=== PATIENT | female | born 1975 | race Caucasian/White ===

== ENCOUNTER 2022-01-27 10:52 | Outpatient (CLI) | payer OTHER ==
[2022-01-27 12:00] VITALS: BP 118/84
--- NOTE | 2022-01-27 12:00 | SLEEP CARE CONSULTATION ---
Information from patient questionnaire entered by Wilma Buchanan MA. I have reviewed and concur with the information entered by Wilma Buchanan MA. This document represents the service I personally performed and the decisions made by me, Adry Rome ARNP. History of Present Illness Service Date and Time: 01/27/2022 1052 Reason for Visit: New patient Chief Complaint: reports: Unrefreshed sleep, Frequent awakenings at night Date of Onset: ABOUT A YEAR Usual bedtime: 10PM Time it takes to fall asleep: A LONG TIME Snores at night: Yes (SOMTIMES) Observed to quit breathing while asleep: No Sleeps alone due to snoring: No Number of times waking at night: 4-5 TIMES Reasons for waking at night: reports: Bathroom, Other (NOISE) Toss, Turn, or Twitch while sleeping: Yes Recalls having dreams: Yes Usually gets out of bed at: 530PM Feels refreshed in the morning: No Morning headache: Yes (4 times a week; last until afternoon or EVENING) Sleepy or fatigued during the day: Yes Ever fallen asleep while driving: No Takes day naps: No Prior sleep studies: No Additional HPI information: I had the pleasure of seeing ROCIO LEONARD today regarding the possibility of her having a sleep disorder. Her current complaints are unrefreshed sleep and frequent night awakenings. She feels she has a hard times sleeping. She does not sleep at all at night. She is on amitriptyline to help with sleep but is not using it because of other physical issues and medications she is taking. She is taking pain medication and muscle relaxers. She states it can take hours to fall asleep. She will wake up several times a night for bathroom or noise. She will then toss and turn in bed. She gets up about 0530. She states she has always been a light sleeper but slept better until about a year ago. Her snores loudly and she is unable to sleep. She has slept separate from him due to his snoring. She has snored but it does not seem to be consistent. She has woke up herself snoring and feeling like she cannot breathe. She wakes up with a headache often, sometimes feels every day. - Parasomnia Symptoms Ever been unable to move upon waking from sleep: No Walks in sleep: No Talks in sleep: No Ever acted out dreams in sleep: No Ever felt weak in the knees when startled or emotional: No Bothered by creepy, crawly, restless sensations in legs: Yes (sometimes) Problems with memory or concentration: Yes (sometimes; just occasional for getfulness) Subjective Initial [place] Sleepiness Scale score: 5 (01/2022) Past Medical History Past Medical History: reports: Other (concussion - June 2021; Nerve/muscle issues on left side of body- being looked into ; 2019 hysterectomy) Social History The patient's occupation is a [employer]. Patient is and lives in [place]. Have you smoked in the past 12 months: No (21 YEARS AGO) Cigarettes per day (20/pack): 20 Years of smokin Quit date: 1999 Smoking Pack Years: 2.0 Alcohol use: No Caffeine use: Yes Caffeine amount and frequency: 16 OZ 1 A DAY Family History Family history of sleep disordered breathing: Yes Family Hx Sleep Apnea: Mother: Snoring Allergies and Home Medications Known drug allergies: No Drug allergies reviewed: Yes (NKDA) Home medication list reviewed: Yes Allergy and home medication list: Allergies No Known Drug Allergies Allergy (Verified 09/04/13 16:23) Medications: Gabapentin 300 mg 3x a day Tramadol 50 mg, prn Meloxicam 15 mg daily Baclofen 10 mg, 3 x day, as needed Amitriptyline, prn (not taking right now) Review of Systems Weight gain over past 5 years: 25 LBS Weight loss over past 5 years: 6 in last 6 weeks Respiratory: reports: shortness of breath Gastrointestinal: reports: heartburn, abdominal pain Urinary: reports: frequency, urgency Neurological: reports: headaches, head trauma (concussion June 2021) Musculoskeletal: reports: neck pain, back pain, mobility problems Physical Exam Vital signs obtained and entered by: [facility] Blood Pressure: 118/84 (left arm) Cuff size: regular Heart Rate: 76 O2 Saturation: 97 Height: 5 ft 10 in Weight: 147 lb 6.4 oz Body Mass Index: 21.1 BMI Classification: Normal Neck circumference: 15 Mouth and throat: normal Soft palate: normal Hard palate: normal Uvula: normal Uvula visualization: 50% Mallampati Class II Tongue: enlarged in size with teeth townsend on lateral edges Tonsils: small Neck: normal w/o lymphadenopathy or thyromegaly Heart: regular rate and rhythm Lungs: clear bilaterally Impression and Plan 1. Suspected Obstructive Sleep Apnea-Hypopnea Syndrome, as suggested by a history of irregular snoring, morning headache, frequent awakening during the night, unrefreshed sleep, cognitive impairment, and excessive daytime sleepiness. Narrow oropharynx and obesity are common predisposing factors for obstructive sleep apnea-hypopnea syndrome. I recommend proceeding to polysomnography to confirm the diagnosis and to assess severity. If the patient has significant sleep disordered breathing, a manual CPAP titration study will also be performed to find the optimal treatment pressure. I informed the patient of what the sleep studies involve and after some discussion, obtained agreement to proceed. The pathophysiology of obstructive sleep apnea-hypopnea syndrome was discussed with the patient and health risks of cardiovascular and cerebrovascular disease if not treated. Risks of drowsy driving discussed in detail and patient advised to avoid long distance driving and to loin puller at the first sign of drowsiness. Patient agreed to plan. * Schedule polysomnography * Avoid long distance driving or driving when feeling sleepy. * Avoid alcohol, sedative and muscle relaxant around bedtime. * Review instructions provided by trained office staff on how to prepare for the sleep study. * Return for follow-up after sleep study completed. Counseling Topics: Weight loss health impact Visit Type: In Office Time Spent with Patient (minutes): 32 Provider Statement: I spent 100% of the Face to Face Visit with the patient with greater than 50% spent counseling the patient and coordination of care.
== END 2022-01-27 10:53 | disposition home or self-care (01) ==
LOC: SC 10:52
PROVIDERS: ATTEND Nurse Practitioner Family
DX: R06.83 Snoring (principal); G47.8 Other sleep disorders; R51.9 Headache, unspecified; G47.10 Hypersomnia, unspecified; R53.83 Other fatigue; Z87.891 Personal history of nicotine dependence
CPT/HCPCS: 99203; 99212

== ENCOUNTER 2022-02-17 15:25 | Outpatient (CLI) | payer OTHER ==
--- NOTE | 2022-02-17 19:36 | MRI Report ---
PROCEDURE: BRAIN WO INDICATIONS: NEUROLOGIC SYMPTOMS TECHNIQUE: Noncontrast axial T1 spin echo, axial T2 fast spin echo, sagittal and axial FLAIR, coronal T2 fast sp in echo, axial gradient echo, axial diffusion and ADC through the brain. COMPARISON: None. FINDINGS: Image quality: Excellent. CSF Spaces: Basal cisterns are patent. No extra-axial fluid collections. Ventricles are normal in size and shape. Brain: No intracranial masses or hemorrhage. Tomas/white matter interface is normal. Brainstem appe ars normal. Diffusion-weighted images demonstrate no acute ischemic insult. No chronic ischemic ins ults. Normal intravascular flow voids are present. Skull and face: Calvarium has normal marrow signal. Orbits appear normal. Sinuses: Sinuses and mastoids are clear. IMPRESSION: Unremarkable brain MRI. No findings of acute or subacute infarction are seen. Reviewed by: Adan Pemberton MD on 02/17/2022 6:35 PM BRENDA Approved by: Adan Pemberton MD on 02/17/2022 6:35 PM BRENDA Station ID: [id number]
== END 2022-02-17 15:26 | disposition home or self-care (01) ==
LOC: DI 15:25
PROVIDERS: ATTEND Family Medicine
DX: R29.818 Other symptoms and signs involving the nervous system (principal)

== ENCOUNTER 2022-03-05 07:30 | Outpatient (CLI) | payer OTHER ==
[~2022-03-05 07:30] MED LIST: GADOBUTROL 7.5 MMOL/7.5 ML VIAL ONE
[2022-03-05] MEDS ORDERED: GADOBUTROL 7.5 MMOL/7.5 ML VIAL IVP ONE (08:43)
--- NOTE | 2022-03-07 13:37 | MRI Report ---
PROCEDURE: BRAIN W/WO INDICATIONS: PARESTHESIA OF SKIN CONTRAST: 6.0 TECHNIQUE: Noncontrast axial T1 spin echo, axial T2 fast spin echo, sagittal and axial FLAIR, coronal T2 fast sp in echo, axial gradient echo, axial diffusion and ADC through the brain. After the administration of contrast, axial and coronal T1 spin echo with fat saturation through the brain. COMPARISON: None. FINDINGS: Image quality: Excellent. CSF spaces: Basal cisterns are patent. No extra-axial fluid collections. Ventricles are normal in size and shape. Brain: No midline shift. No intracranial bleeds or masses. No abnormal intracranial enhancement. There is cerebral volume loss for age. There is periventricular white matter chronic small vessel is chemic change. The brainstem appears normal. Diffusion-weighted images demonstrate no acute ischemi c insults. No chronic ischemic insults. Normal intravascular flow voids are present. Skull and face: Calvarial marrow is normal in signal. Orbits appear normal. Sinuses: Sinuses and mastoids appear clear. IMPRESSION: 1. No acute intracranial process. Reviewed by: Marcelina Stahl MD on 03/07/2022 1:36 PM PST Approved by: Marcelina Stahl MD on 03/07/2022 1:36 PM PST Station ID: [id number]
== END 2022-03-05 07:31 | disposition home or self-care (01) ==
LOC: DI 07:30
PROVIDERS: ATTEND Family Medicine
DX: R20.2 Paresthesia of skin (principal); M79.602 Pain in left arm
CPT/HCPCS: 70553; A9585

== ENCOUNTER 2022-03-21 09:03 | Outpatient (CLI) | payer OTHER | END 2022-03-21 09:04 | disposition home or self-care (01) | LOC: SC 09:03 | PROVIDERS: ATTEND Nurse Practitioner Family | DX: R09.02 Hypoxemia (principal) | CPT/HCPCS: 95806 ==

== ENCOUNTER 2022-04-29 09:00 | Outpatient (CLI) | payer OTHER ==
[2022-04-29 09:36] VITALS: BP 118/76
--- NOTE | 2022-04-29 09:36 | SLEEP CARE CONSULTATION ---
Information from patient questionnaire entered by Rhoda Gonzalez. I have reviewed and concur with the information entered by Rhoda Gonzalez. This document represents the service I personally performed and the decisions made by , Adry Rome ARNP. History of Present Illness Service Date and Time: 04/29/2022 0900 Initial [place] Sleepiness Scale score: 5 (01/2022) Current [place] Sleepiness Scale score: 6 () Additional HPI information: ROCIO LEONARD returns for follow up and results of the recently performed home sleep study. The patient was informed of the following findings: No significant sleep disordered breathing with an average AHI of 2.8 and robert oxygen saturation of 88%. Patient did not sleep supine. I explained the pathophysiology behind obstructive sleep apnea. Patient does not have sleep apnea and was advised how weight gain could increase the risk of developing sleep apnea in the future. Patient has light snoring. Snoring can be reduced by weight loss. Weight loss is best achieved with diet consult. Patient instructed to contact PCP for referral. Snoring can also be treated with an oral appliance from a dentist. Advised to check insurance coverage. In addition, an ENT evaluation can be do to see if other treatment is indicated. Patient counseled not drink alcohol less than 4 hours before bedtime as it can increase snoring and apnea. Patient was cautioned about risks of drowsy driving until sleepiness symptoms resolve. Patient denies drowsy driving. Sleep Study - Results Type of Sleep Study: Home sleep study (COMPLETED 03/21/22) Prior sleep studies: No Allergies and Home Medications Drug allergies reviewed: Yes (NKDA) Home medication list reviewed: Yes (Magnesium citrate 400 mg; Riboflavin ordered/not started yet) Review of Systems Review of systems same as previous: Yes (no changes) Physical Exam Vital signs obtained and entered by: RHODA Marquez MA Blood Pressure: 118/76 (LEFT ARM) Cuff size: regular Heart Rate: 71 O2 Saturation: 92 Height: 5 ft 10 in Weight: 155 lb 12.8 oz Body Mass Index: 22.3 BMI Classification: Normal Impression and Plan 1. Insomnia, unspecified. Her HST showed no sleep disordered breathing and minimal snoring. Patient states she struggles to fall asleep at night and will wake up repeatedly throughout the night. She will wake up early in the morning and not be able to go back to sleep. She is also a very light sleeper and her snores loudly. Insomnia is generally caused by an irregular sleep schedule, spending too much time in bed, napping, caffeine, electronics, lack of a relaxing bedtime ritual and clock watching. Other factors can include anxiety/depression, pain, medications, and obstructive sleep apnea. First I counseled the patient on the importance of a regular sleep schedule, starting with the wake time. I explained the homestatic sleep drive and how maintaining a regular wake time will allow the patient to be tired enough to sleep 15-16 hours later. By waking at the same time, the patient will also feel more alert. This can also be assisted by exposure to bright light for a minimum of 15 minutes a day upon waking. Additionally too much time spent in bed can cause more sleep disruption as most people only need 7-9 hours of sleep. Thus patient advised to restrict time in bed to 7-8 hours. Naps are to be avoided unless overcome by sleepiness. Then naps are to be restricted to one hour and before 3 pm so as not to interfere with nighttime sleep. Electronics should be avoided 1-2 hours before bedtime as the bright light can reduce the endogenous melatonin and the activity of the computer, tablet, cell phone etc can be alerting. TV is okay but content needs to be relaxing and the brightness dimmed. It is important to have a sleep environment conducive to sleep such as a comfortable bed, comfortable temperature and quiet. If unable to go to sleep in an estimated 20 minutes of more, it is advised to leave the bedroom and engage in a quiet activity until sleepy enough to return to bed. This is to be repeated as often as necessary to associate the bed with sleep and not frustration to get to sleep. [facility] How to Sleep Better pamphlet given and reviewed. A sleep diary will be completed for the next 2 weeks to assist implementation of recommendations and for further evaluation of sleep concerns. * Fill out 2 week sleep diary for follow up * Avoid alcohol consumption near bedtime * The patient is cautioned about driving until sleepiness is completely resolved. * Return in 2 weeks for follow up of insomnia with Dr. Ko. Visit Type: In Office Time Spent with Patient (minutes): 22 Provider Statement: I spent 100% of the Face to Face Visit with the patient with greater than 50% spent counseling the patient and coordination of care.
== END 2022-04-29 09:01 | disposition home or self-care (01) ==
LOC: SC 09:00
PROVIDERS: ATTEND Nurse Practitioner Family
DX: G47.00 Insomnia, unspecified (principal)
CPT/HCPCS: 99212; 99213

== ENCOUNTER 2023-08-11 09:50 | Day surgery (SDC) | payer OTHER ==
[2023-08-11] MEDS: LACTATED RINGERS 1,000 ML IV ONE (09:55)
[2023-08-11] MEDS ORDERED: PROPOFOL 500 MG/50 ML 500 MG/50 ML VIAL ONE (10:41)
--- NOTE | 2023-08-11 10:49 | ANESTHESIA ---
Pre-Anesthesia VS, & Labs - Diagnosis SCREENING/FAMILY HX OF COLON CA - Procedure COLONOSCOPY Vital Signs: Temp Pulse Resp BP Pulse Ox O2 Flow Rate 36.4 C L 84 14 120/89 H 98 08/11/23 10:11 08/11/23 10:11 08/11/23 10:11 08/11/23 10:11 08/11/23 10:11 Height: 5 ft 2 in Weight (kg): 71.2 kg Body Mass Index: 28.7 BMI Classification: Overweight - NPO Last Fluid Intake: 0700 Last Food Intake: >8HR - Is Patient ?: No (HYSTERECTOMY) Home Medications and Allergies Home Medications: Ambulatory Orders Amitriptyline [Elavil] 25 mg PO DAILY 08/10/23 Gabapentin [Neurontin] 600 mg PO TID 08/10/23 Meloxicam [Mobic] 15 mg PO DAILY 08/10/23 Pantoprazole [Protonix] 40 mg PO DAILY 08/10/23 traMADol [Ultram] 50 mg PO Q4-6H PRN 08/10/23 Loratadine 10 mg PO DAILY 09/04/13 Amitriptyline [Elavil] 25 mg PO DAILY 08/10/23 Gabapentin [Neurontin] 600 mg PO TID 08/10/23 Meloxicam [Mobic] 15 mg PO DAILY 08/10/23 Pantoprazole [Protonix] 40 mg PO DAILY 08/10/23 traMADol [Ultram] 50 mg PO Q4-6H PRN 08/10/23 Allergies/Adverse Reactions: Allergies Allergy/AdvReac Type Severity Reaction Status Date / Time duloxetine Allergy Unknown Verified 08/11/23 10:23 latex AdvReac Itching Verified 08/11/23 10:20 Anes History & Medical History - Anesthetic History Anesthesia Complications: reports: No previous complications Family history of Anesthesia Complications: Denies - Medical History Cardiovascular: reports: None Pulmonary: reports: None Gastrointestinal: reports: GERD (RARE), Ulcers, Hemorrhoids, Diverticulitis Urinary: reports: Frequency Musculoskeletal: reports: Osteoarthritis Endocrine/Autoimmune: reports: None Smoking Status: Never smoker Psychosocial: reports: No issues indicated - Surgical History Gynecologic: reports: section, Endometrial ablation, Hysterectomy Results - EKG Results EKG Comparison: Reviewed EKG Exam General: Alert Neck Mobility: Normal Mallampati classification: II Thyromental Distance: 4-6 cm Plan Anesthesia Type: Total IV Consent for Procedure(s) Verified and Reviewed: Yes Code Status: Attempt Resuscitation ASA classification: 2-Mild systemic disease Is this case an emergency?: No
[2023-08-11] MEDS ORDERED: MIDAZOLAM 2 MG/2 ML VIAL ONE (11:03)
--- NOTE | 2023-08-11 11:14 | HISTORY & PHYSICAL EXAMINATION ---
Chief Complaint - Chief Complaint Chief Complaint: here for colonoscopy History of Present Illness - History Obtained From Records Reviewed: yes History obtained from: pt Exam Limitations: none - History of Present Illness HPI Comment/Other: here for colonoscopy for screening. she states grandmother had colon ca. no first degree relatives. she describes bloating. we discussed this is usually not from colon pathology. no diarrhea. 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: section, Endometrial ablation, Hysterectomy - POLST Patient has POLST: No Meds/Allgy - Home Medications Home Medications: Ambulatory Orders Medication Instructions Recorded Confirmed Loratadine 10 mg PO DAILY 09/04/13 09/04/13 Amitriptyline [Elavil] 25 mg PO DAILY 08/10/23 08/10/23 Gabapentin [Neurontin] 600 mg PO TID 08/10/23 08/11/23 Meloxicam [Mobic] 15 mg PO DAILY 08/10/23 08/11/23 Pantoprazole [Protonix] 40 mg PO DAILY 08/10/23 08/11/23 traMADol [Ultram] 50 mg PO Q4-6H PRN 08/10/23 08/10/23 - Allergies Allergies/Adverse Reactions: Allergies Allergy/AdvReac Type Severity Reaction Status Date / Time duloxetine Allergy Unknown Verified 08/11/23 10:23 latex AdvReac Itching Verified 08/11/23 10:20 Review of Systems - Other Findings Other Findings: 10 pt ros as above otherwise unremarkable Exam - Vital Signs Vital Signs: Vital Signs x48h Temp Pulse Resp BP Pulse Ox 08/11/23 10:11 36.4 C L 84 14 120/89 H 98 - Physical Exam General Appearance: positive: No acute distress, Alert Eyes Bilateral: positive: PERRL, EOMI ENT: positive: No signs of dehydration Neck: positive: No JVD Respiratory: positive: No respiratory distress Cardiovascular: positive: Regular rate & rhythm Abdomen: positive: No distention Neurologic/Psychiatric: positive: Oriented x3 Conclusion/Plan - Problem List (1) Colon cancer screening Conclusion/Plan: plan colonoscopy. parq held and consent obtained. she has complaint of bloating. we discussed possible work up for celiac, h pylori. she states avoiding broccoli is helpful
[2023-08-11] MEDS ORDERED: LIDOCAINE-MPF 2% 5 ML VIAL ONE (11:22)
[2023-08-11] MEDS: LACTATED RINGERS 700 ML IV ONE ×2 (11:48→12:33)
[2023-08-11 12:17] VITALS: BP 105/72; O2SAT 97
--- NOTE | 2023-08-11 12:28 | ANESTHESIA POST OP EVALUATION ---
Anesthesia Post Eval - Post Anesthesia Eval Vitals: Last Vital Signs Temp 36.6 C 08/11/23 12:09 Pulse 82 08/11/23 12:09 Resp 16 08/11/23 12:09 BP 105/72 08/11/23 12:09 Pulse Ox 97 08/11/23 12:09 O2 Flow Rate CV Function Including HR & BP: Stable Pain Control: Satisfactory Nausea & Vomiting: Negative Mental Status: Baseline Respiratory Status: Airway Patent Hydration Status: Satisfactory Anesthesia Complications: None
== END 2023-08-11 09:51 | disposition home or self-care (01) ==
LOC: SDS 09:50
PROVIDERS: ATTEND Surgery
PROC: 0DBP8ZX Excision of Rectum, Via Natural or Artificial Opening Endoscopic, Diagnostic (ICD-10-PCS; 2023-08-11)
PROC: 0DBF8ZX Excision of Right Large Intestine, Via Natural or Artificial Opening Endoscopic, Diagnostic (ICD-10-PCS; 2023-08-11)
PROC: 0DBG8ZX Excision of Left Large Intestine, Via Natural or Artificial Opening Endoscopic, Diagnostic (ICD-10-PCS; 2023-08-11)
PROC: 0DBB8ZX Excision of Ileum, Via Natural or Artificial Opening Endoscopic, Diagnostic (ICD-10-PCS; principal; 2023-08-11 11:30)
DX: Z12.11 Encounter for screening for malignant neoplasm of colon (principal); K57.30 Diverticulosis of large intestine without perforation or abscess without bleeding; Z80.0 Family history of malignant neoplasm of digestive organs
CPT/HCPCS: 45380; J7120